=== PATIENT | female | born 1990 | race Caucasian/White ===

== ENCOUNTER → 2021-10-04 14:10 | Outpatient (CLI) | payer OTHER, SELFPAY ==
[2021-10-05 16:36] LABS: HIV 1 & 2 Ab/Ag 4th Gen Combo NEGATIVE (NEGATIVE); Hep C Virus Ab w/Reflex Quant NEGATIVE s/c (NEGATIVE)
[2021-10-06 00:07] LABS: Hepatitis B Core AB w/Reflex Negative (Negative)
== END ==
PROVIDERS: PCP Physician Assistant; Visit Provider Physician Assistant
DX: Z02.6 Encounter for examination for insurance purposes (principal); W46.1XXA Contact with contaminated hypodermic needle, initial encounter
CPT/HCPCS: 86704; 86803; 87389

== ENCOUNTER 2023-03-04 08:27 | Day surgery (SDC) | payer OTHER, SELFPAY ==
[2023-02-27 08:32] VITALS: BMI 22.6
[2023-03-04] VITALS (7 sets, daily range): BP systolic 102–115; BP diastolic 62–77; PULSE 54–78; RESP 12–16; TEMP 36.3–37.1; O2SAT 97–100
[2023-03-04] MEDS: ACETAMINOPHEN 325 MG TABLET 975 MG PO (09:09)
[2023-03-04] MEDS: SCOPOLAMINE 1 PATCH TOP (09:09)
--- NOTE | 2023-03-04 09:52 | SUR.PREOP ---
silver-tone wedding band in belongings bag
--- NOTE | 2023-03-04 10:51 | P.HPOB_ITS ---
History of Present Illness History of Present Illness Narrative: Kaycee Gipson is a 32 year old female 0 with dyspareunia due to a thickened hymenal ring [facility] Social History household members: spouse Smoking Status: Never smoker Meds Home Medications and Allergies Home Medications Medication Instructions Recorded Confirmed Type etonogestrel 68 mg subdermal 68 mg subdermal DAILY 10/04/21 03/04/23 History implant (Nexplanon) citalopram 10 mg tablet 10 mg PO DAILY 02/12/23 03/04/23 History Allergies Allergy/AdvReac Type Severity Reaction Status Date / Time No Known Drug Allergies Allergy Verified 03/04/23 09:01 Exam Vital Signs (past 8 hours): - 03/04/23 09:18 Temperature 98.7 F Pulse Rate 78 Respiratory Rate 16 Blood Pressure 115/77 Pulse Oximetry 97 Oxygen Delivery Method Room Air Oxygen Delivery Method Room Air Narrative Exam Narrative: HEENT: No thyromegaly, no anterior cervical or supraclavicular lymphadenopathy. Lungs:Clear to auscultation bilaterally, no wheezes. Cardiovascular: Regular rate and rhythm, no murmurs, rubs, or gallops. Abdomen: No scars. No hepatosplenomegaly. No masses palpable. External genitalia: Thickened hymenal ring Vagina: Normal Cervix: Normal Bimanual exam: 6 Week size anteverted uterus. Mobile. Extremities: No edema Assessment & Plan Assessment & Plan narrative: Assessment: 32-year-old 0 with dyspareunia and a thickened hymenal ring Plan: Hymenotomy The risks, benefits, and alternatives to the procedure were explained to the patient. The risks including bleeding and infection. She understands these risks and agrees to proceed. A full par Q was held and consent form was signed. Time Spent With Patient Time with patient: less than 30 minutes
--- NOTE | 2023-03-04 10:53 | PM.PREOP ---
Pre-operative Note Interval Note History & Physical reviewed/Exam performed by Physician: Yes Changes to H&P: No H&P completed within 30 days and has changed as indicated here:: 03/04/23
--- NOTE | 2023-03-04 11:21 | SUR.OPER ---
Lithotomy on padded OR bed, head on pillow, arms secured on padded arm boards at <90 degrees abduction. Legs secured in padded yellow fins stirrups.
[2023-03-04] MEDS: LIDOCAINE 1% W/EPI 20 ML INJ (11:28)
--- NOTE | 2023-03-04 11:51 | PM.GYNOP.1 ---
Operative Date/Time/Diagnoses Date of procedure: 03/04/23 Time of procedure: 11:51 Pre-op diagnosis: Dyspareunia Thickened hymenal ring Post-op diagnosis: same Procedure & Clinicians Procedure: Procedures Operation Date: 03/04/23 10:15 Actual Procedure Side Surgeon husam Esparzatodakotah Grimm MD Indications: Patient is a 32-year-old 0 with dyspareunia and a thickened hymenal ring Surgeon: Danette Grimm Anesthesia Type: General (LMA) and Local Operative Notes Findings: Thickened hymenal ring from the 3 to 9 o'clock position. Closure Type: primary Specimen(s): none Estimated blood loss (mL): 5 Blood products transfused: none Procedure in detail: After informed consent was obtained, the patient was taken to the operating room where she was placed in the dorsal supine position. After adequate LMA general anesthesia was achieved, she was placed in the dorsal lithotomy position, and prepped and draped in the usual sterile fashion. A time-out was performed. The hymenal ring was inspected. 6 cc of 1% lidocaine were injected from the 3 to 9 o'clock position around the hymenal ring. At the 5 and 8 o'clock position an incision was made. The edges of the cut hymen were reapproximated to itself, with 3-0 chromic in simple interrupted sutures. Hemostasis was achieved. Another 8 cc of 1% lidocaine were injected at the completion of the procedure. Sponge, lap, and instrument counts were correct x2. The patient tolerated the procedure well, and was taken to PACU in stable condition. Complications: none Post-operative Condition: stable Disposition: PACU Plan for aftercare: Home after recovery
== END 2023-03-04 12:20 | disposition home or self-care (01) ==
PROVIDERS: PCP Family Medicine; Referring Provider Obstetrics & Gynecology; Visit Provider Obstetrics & Gynecology
PROC: (CPT 56700; principal; 2023-03-04 10:15)
DX: N94.10 Unspecified dyspareunia (principal); N89.6 Tight hymenal ring
CPT/HCPCS: 56442; 81025; J1100; J1885; J2250; J2405; J2704; J3010